=== PATIENT | female | born 1950 | race Caucasian/White ===

== ENCOUNTER 2024-04-28 06:58 | Inpatient (IN) ==
[2024-04-28] MEDS: IPRATROPIUM/ALBUTEROL 3 ML AMPUL.NEB NEB ONE ×2 (07:18→09:05)
[2024-04-28] MEDS: methylPREDNISolone SOD SUCC 125 MG/2 ML VIAL IV ONE (07:18)
[2024-04-28] MEDS: MAGNESIUM SULFATE 2 GM/50 ML BAG IV ONE (07:19)
[2024-04-28 07:33] LABS: Basophils # (Auto) 0.02 K/mcL (0.00-0.30); Basophils % (Auto) 0.1 % (0.0-2.0); Eosinophils % (Auto) 0.6 % (0.0-7.0); Hematocrit 41.8 % (34.1-44.9); Hemoglobin 13.4 g/dL (11.2-15.7); Lymphocytes # (Auto) 1.77 K/mcL (1.50-4.80); Lymphocytes % (Auto) 10.2 % (15.5-49.0); Mean Cell Volume 99.3 fL (80.0-100.0); Mean Corpuscular HGB Conc 32.1 g/dL (31.0-36.0); Mean Platelet Volume 10.7 fL (8.8-12.5); Monocytes # (Auto) 1.43 K/mcL (0.10-0.90); Monocytes % (Auto) 8.2 % (1.0-12.0); Neutrophils % (Auto) 80.3 % (38.0-78.0); Platelet Count 195 K/mcL (140-440); RBC 4.21 M/mcL (3.59-5.38); Red Cell Distribution Width 13.9 % (11.5-14.5); WBC 17.4 K/mcL (4.5-11.0)
[2024-04-28 07:51] LABS: Blood Urea Nitrogen 13 mg/dL (8-23); Calcium 9.1 mg/dL (8.6-10.4); Carbon Dioxide 22 mmol/L (22-30); Chloride 100 mmol/L (96-108); Glomerular Filtration Rate 86; Glucose 115 mg/dL (70-105); Potassium 3.6 mmol/L (3.3-5.1); Sodium 136 mmol/L (133-145)
[2024-04-28 10:34] LABS: ABG Methemoglobin 0.2 % (0.4-1.5); Total Hemoglobin 14.4 gm/Dl (12.0-15.0); VBG Base Excess -2 (-2-3); VBG HCO3 23.6 mmol/L (24.0-28.0); VBG Oxygen Saturation 68.1 % (40.0-70.0); VBG PCO2 43.4 mmHg (41.0-51.0); VBG PH 7.35 U (7.32-7.42); VBG PO2 36.7 mmHg (25.0-40.0); VBG Total CO2 24.9 mmol/L (25.0-29.0)
[2024-04-28] MEDS ORDERED: LACTULOSE 20 GM/30 ML ORAL.SOL PO PRN (11:37)
[2024-04-28] MEDS ORDERED: ALBUTEROL SULFATE 2.5 MG/3 ML NEBULIZER NEB PRN (11:37)
[2024-04-28] MEDS ORDERED: ONDANSETRON 4 MG/2 ML VIAL IV PRN (11:37)
[2024-04-28] MEDS ORDERED: ACETAMINOPHEN 325 MG TABLET PO PRN (11:37)
[2024-04-28] MEDS ORDERED: SENNOSIDES 1 TABLET PO PRN (11:37)
[2024-04-28] MEDS: cefTRIAXone 1 GM VIAL IV SCH (11:59)
[2024-04-28] MEDS: IPRATROPIUM/ALBUTEROL 3 ML AMPUL.NEB NEB SCH (12:01)
[2024-04-28] MEDS: TRELEGY ELLIPTA INH SCH (14:00)
[2024-04-28] MEDS: 0.9 % SODIUM CHLORIDE 10 ML SYRINGE IV SCH (14:01)
[2024-04-28] MEDS: guaiFENesin 600 MG TAB.SR.12H PO SCH (16:42)
[2024-04-28] MEDS: methylPREDNISolone SOD SUCC 125 MG/2 ML VIAL IV SCH (21:14)
[2024-04-28] MEDS: ASPIRIN 81 MG TAB.CHEW PO SCH (21:15)
[2024-04-28] MEDS: ATORVASTATIN 10 MG TABLET PO SCH (21:15)
[2024-04-28] MEDS: DULoxetine 30 MG CAPSULE PO SCH ×2 (21:15)
[2024-04-28] MEDS: LISINOPRIL 20 MG TABLET PO SCH (21:15)
[2024-04-28] MEDS: ATENOLOL 25 MG TABLET PO SCH (21:15)
[2024-04-28] MEDS: DOCUSATE SODIUM 100 MG CAPSULE PO SCH (21:16)
[2024-04-29 06:16] LABS: Basophils # (Auto) 0.01 K/mcL (0.00-0.30); Basophils % (Auto) 0.1 % (0.0-2.0); Eosinophils # (Auto) 0 K/mcL (0.00-0.70); Eosinophils % (Auto) 0 % (0.0-7.0); Hematocrit 38.8 % (34.1-44.9); Hemoglobin 12.7 g/dL (11.2-15.7); Lymphocytes # (Auto) 0.48 K/mcL (1.50-4.80); Lymphocytes % (Auto) 3.5 % (15.5-49.0); Mean Cell Volume 98.7 fL (80.0-100.0); Mean Corpuscular HGB Conc 32.7 g/dL (31.0-36.0); Mean Platelet Volume 10.7 fL (8.8-12.5); Monocytes % (Auto) 3.6 % (1.0-12.0); Neutrophils % (Auto) 92.5 % (38.0-78.0); Platelet Count 217 K/mcL (140-440); RBC 3.93 M/mcL (3.59-5.38); Red Cell Distribution Width 13.8 % (11.5-14.5); WBC 13.9 K/mcL (4.5-11.0)
[2024-04-29 06:26] LABS: ALT/SGPT 8 U/L (<40); AST/SGOT 14 U/L (<32); Albumin 3.9 gm/dL (3.2-5.2); Albumin/Globulin Ratio 1.4 (1.0-2.3); Alkaline Phosphatase 70 U/L (39-117); Bilirubin,Direct < 0.2 mg/dL (0-0.3); Bilirubin,Total < 0.2 mg/dL (0.1-1.0); Blood Urea Nitrogen 21 mg/dL (8-23); Carbon Dioxide 26 mmol/L (22-30); Chloride 101 mmol/L (96-108); Globulin 2.7 gm/dL (2.2-3.7); Glomerular Filtration Rate 90; Glucose 159 mg/dL (70-105); Lactate Dehydrogenase 155 U/L (135-225); Phosphorous 2.6 mg/dL (2.5-4.5); Potassium 4.3 mmol/L (3.3-5.1); Sodium 137 mmol/L (133-145); Triglycerides 52 mg/dL (<150); Uric Acid 6.6 mg/dL (2.5-8.0)
[2024-04-29] MEDS: ENOXAPARIN 40 MG/0.4 ML SYRINGE SQ SCH (08:39)
[2024-04-29] MEDS: OMEPRAZOLE 20 MG CAPSULE PO PRN (14:14)
[2024-04-29] MEDS: DULoxetine 30 MG CAPSULE PO SCH (20:25)
[2024-04-30 06:07] LABS: Basophils # (Auto) 0.02 K/mcL (0.00-0.30); Basophils % (Auto) 0.1 % (0.0-2.0); Eosinophils # (Auto) 0 K/mcL (0.00-0.70); Eosinophils % (Auto) 0 % (0.0-7.0); Hematocrit 37.3 % (34.1-44.9); Hemoglobin 12.1 g/dL (11.2-15.7); Lymphocytes % (Auto) 3.2 % (15.5-49.0); Mean Cell Volume 99.2 fL (80.0-100.0); Mean Corpuscular HGB Conc 32.4 g/dL (31.0-36.0); Mean Platelet Volume 10.8 fL (8.8-12.5); Monocytes # (Auto) 0.68 K/mcL (0.10-0.90); Monocytes % (Auto) 4.4 % (1.0-12.0); Neutrophils % (Auto) 91.8 % (38.0-78.0); Platelet Count 226 K/mcL (140-440); RBC 3.76 M/mcL (3.59-5.38); Red Cell Distribution Width 13.9 % (11.5-14.5); WBC 15.4 K/mcL (4.5-11.0)
== END 2024-04-30 14:37 | disposition home or self-care (01) | DRG 193 ==
LOC: ED 06:58 → ICU 11:33 → MEDSUR 04-29 11:35
PROVIDERS: ADMIT Internal Medicine; ATTEND Internal Medicine

== ENCOUNTER 2024-05-14 18:34 | Inpatient (IN) ==
[2024-05-14] MEDS ORDERED: IOPAMIDOL 100 ML BOTTLE IV ONE (18:35)
[2024-05-14] MEDS: methylPREDNISolone SOD SUCC 125 MG/2 ML VIAL IV ONE (18:49)
[2024-05-14] MEDS: 0.9 % SODIUM CHLORIDE 1,000 ML IV ONE (18:51)
[2024-05-14] MEDS: IPRATROPIUM/ALBUTEROL 3 ML AMPUL.NEB NEB ONE (18:58)
[2024-05-14 19:08] LABS: Basophils # (Auto) 0.04 K/mcL (0.00-0.30); Basophils % (Auto) 0.4 % (0.0-2.0); Eosinophils # (Auto) 0.02 K/mcL (0.00-0.70); Eosinophils % (Auto) 0.2 % (0.0-7.0); Hematocrit 41.2 % (34.1-44.9); Hemoglobin 13.4 g/dL (11.2-15.7); Lymphocytes # (Auto) 0.68 K/mcL (1.50-4.80); Lymphocytes % (Auto) 6.6 % (15.5-49.0); Mean Cell Volume 96.7 fL (80.0-100.0); Mean Corpuscular HGB Conc 32.5 g/dL (31.0-36.0); Mean Platelet Volume 10.5 fL (8.8-12.5); Monocytes # (Auto) 1.26 K/mcL (0.10-0.90); Monocytes % (Auto) 12.2 % (1.0-12.0); Neutrophils % (Auto) 80.3 % (38.0-78.0); Platelet Count 237 K/mcL (140-440); RBC 4.26 M/mcL (3.59-5.38); Red Cell Distribution Width 13.4 % (11.5-14.5); WBC 10.3 K/mcL (4.5-11.0)
[2024-05-14 19:28] LABS: Blood Urea Nitrogen 13 mg/dL (8-23); Calcium 9.4 mg/dL (8.6-10.4); Carbon Dioxide 23 mmol/L (22-30); Chloride 95 mmol/L (96-108); Glomerular Filtration Rate 73; Glucose 148 mg/dL (70-105); Potassium 4.1 mmol/L (3.3-5.1); Sodium 134 mmol/L (133-145)
[2024-05-14] MEDS: MAGNESIUM SULFATE 8.12 MEQ/2 ML VIAL ONE (20:11)
[2024-05-14] MEDS: MAGNESIUM SULFATE 1 GM/100 ML BAG IV ONE (20:13)
[2024-05-14] MEDS: cefTRIAXone 1 GM VIAL IV ONE (21:29)
[2024-05-15] MEDS ORDERED: LACTULOSE 20 GM/30 ML ORAL.SOL PO PRN (00:57)
[2024-05-15] MEDS: MAGNESIUM SULFATE 2 GM/50 ML BAG IV ONE ×2 (01:21→03:24)
[2024-05-15] MEDS: LEVOFLOXACIN 750 MG/150 ML BAG IV SCH ×2 (01:31→16:05)
[2024-05-15] MEDS: IPRATROPIUM/ALBUTEROL 3 ML AMPUL.NEB NEB SCH (02:55)
[2024-05-15] MEDS: VANCOMYCIN 1,500 MG in 0.9 % SODIUM CHLORIDE 500 ML IV ONE (03:22)
[2024-05-15] MEDS: VANCOMYCIN PER PHARMACY IV ONE (03:24)
[2024-05-15] MEDS: LEVOFLOXACIN 750 MG/150 ML BAG IV ONE (03:25)
[2024-05-15] MEDS: IPRATROPIUM/ALBUTEROL 3 ML AMPUL.NEB NEB ONE (04:50)
[2024-05-15] MEDS: 0.9 % SODIUM CHLORIDE 10 ML SYRINGE IV SCH ×2 (05:01→05:02)
[2024-05-15 06:58] LABS: Basophils # (Auto) 0.01 K/mcL (0.00-0.30); Basophils % (Auto) 0.2 % (0.0-2.0); Eosinophils # (Auto) 0 K/mcL (0.00-0.70); Eosinophils % (Auto) 0 % (0.0-7.0); Hematocrit 36.7 % (34.1-44.9); Hemoglobin 11.9 g/dL (11.2-15.7); Lymphocytes # (Auto) 0.23 K/mcL (1.50-4.80); Lymphocytes % (Auto) 3.7 % (15.5-49.0); Mean Cell Volume 99.2 fL (80.0-100.0); Mean Corpuscular HGB Conc 32.4 g/dL (31.0-36.0); Mean Platelet Volume 10.5 fL (8.8-12.5); Monocytes # (Auto) 0.15 K/mcL (0.10-0.90); Monocytes % (Auto) 2.4 % (1.0-12.0); Neutrophils % (Auto) 93.4 % (38.0-78.0); Platelet Count 208 K/mcL (140-440); Red Cell Distribution Width 13.4 % (11.5-14.5); WBC 6.2 K/mcL (4.5-11.0)
[2024-05-15 07:03] LABS: ALT/SGPT 9 U/L (<40); AST/SGOT 14 U/L (<32); Albumin 3.6 gm/dL (3.2-5.2); Albumin/Globulin Ratio 1.4 (1.0-2.3); Alkaline Phosphatase 72 U/L (39-117); Bilirubin,Direct < 0.2 mg/dL (0-0.3); Bilirubin,Total 0.2 mg/dL (0.1-1.0); Blood Urea Nitrogen 13 mg/dL (8-23); Calcium 8.2 mg/dL (8.6-10.4); Carbon Dioxide 22 mmol/L (22-30); Chloride 101 mmol/L (96-108); Globulin 2.6 gm/dL (2.2-3.7); Glomerular Filtration Rate 90; Glucose 145 mg/dL (70-105); Lactate Dehydrogenase 160 U/L (135-225); Phosphorous 2.2 mg/dL (2.5-4.5); Potassium 4.1 mmol/L (3.3-5.1); Sodium 136 mmol/L (133-145); Triglycerides 46 mg/dL (<150); Uric Acid 5.6 mg/dL (2.5-8.0)
[2024-05-15] MEDS ORDERED: VANCOMYCIN PER PHARMACY IV SCH (07:15)
[2024-05-15] MEDS: THIAMINE 200 MG in 0.9 % SODIUM CHLORIDE 50 ML IV ONE ×2 (08:26→09:03)
[2024-05-15] MEDS: methylPREDNISolone SOD SUCC 125 MG/2 ML VIAL IV SCH (09:02)
[2024-05-15] MEDS: ENOXAPARIN 40 MG/0.4 ML SYRINGE SQ SCH (09:02)
[2024-05-15] MEDS ORDERED: OMEPRAZOLE 20 MG CAPSULE PO PRN (13:52)
[2024-05-15] MEDS ORDERED: VANCOMYCIN 1,000 MG in 0.9 % SODIUM CHLORIDE 250 ML IV ONE (21:00)
[2024-05-15] MEDS ORDERED: NON FORMULARY MEDICATION 1 DOSE MISCELL (Duloxetine 60 mg capsule,delayed release(DR/EC)) PO SCH (21:00)
[2024-05-15] MEDS: ATORVASTATIN 10 MG TABLET PO SCH (21:08)
[2024-05-15] MEDS: DULoxetine 30 MG CAPSULE PO SCH (21:08)
[2024-05-15] MEDS: THIAMINE 100 MG in 0.9 % SODIUM CHLORIDE 50 ML IV ONE (21:08)
[2024-05-15] MEDS: LORazepam 2 MG/ML VIAL IV PRN (21:23)
[2024-05-15] MEDS ORDERED: VANCOMYCIN 500 MG in 0.9 % SODIUM CHLORIDE 100 ML IV ONE (22:00)
[2024-05-16 06:22] LABS: Basophils # (Auto) 0.02 K/mcL (0.00-0.30); Basophils % (Auto) 0.2 % (0.0-2.0); Eosinophils # (Auto) 0 K/mcL (0.00-0.70); Eosinophils % (Auto) 0 % (0.0-7.0); Hematocrit 37.8 % (34.1-44.9); Lymphocytes # (Auto) 0.32 K/mcL (1.50-4.80); Lymphocytes % (Auto) 2.9 % (15.5-49.0); Mean Cell Volume 100.3 fL (80.0-100.0); Mean Corpuscular HGB Conc 31.7 g/dL (31.0-36.0); Mean Platelet Volume 10.5 fL (8.8-12.5); Monocytes # (Auto) 0.61 K/mcL (0.10-0.90); Monocytes % (Auto) 5.5 % (1.0-12.0); Platelet Count 235 K/mcL (140-440); RBC 3.77 M/mcL (3.59-5.38); Red Cell Distribution Width 13.4 % (11.5-14.5); WBC 11.1 K/mcL (4.5-11.0)
[2024-05-16] MEDS: Fluticasone-Umeclidin-Vilanter [Trelegy Ellipta] INH SCH (07:04)
[2024-05-16 07:16] LABS: ALT/SGPT 9 U/L (<40); AST/SGOT 13 U/L (<32); Albumin 3.7 gm/dL (3.2-5.2); Albumin/Globulin Ratio 1.5 (1.0-2.3); Alkaline Phosphatase 69 U/L (39-117); Bilirubin,Direct < 0.2 mg/dL (0-0.3); Bilirubin,Total < 0.2 mg/dL (0.1-1.0); Blood Urea Nitrogen 16 mg/dL (8-23); Carbon Dioxide 24 mmol/L (22-30); Chloride 101 mmol/L (96-108); Globulin 2.4 gm/dL (2.2-3.7); Glomerular Filtration Rate 90; Glucose 138 mg/dL (70-105); Lactate Dehydrogenase 157 U/L (135-225); Phosphorous 2.9 mg/dL (2.5-4.5); Potassium 4.3 mmol/L (3.3-5.1); Sodium 139 mmol/L (133-145); Triglycerides 69 mg/dL (<150); Uric Acid 5.5 mg/dL (2.5-8.0)
[2024-05-16] MEDS: morphine 2 MG/ML VIAL IV ONE (07:54)
[2024-05-16] MEDS: IPRATROPIUM/ALBUTEROL 3 ML AMPUL.NEB NEB PRN (08:00)
[2024-05-16] MEDS: MAGNESIUM SULFATE 2 GM/50 ML BAG IV ONE (08:09)
[2024-05-16] MEDS: THIAMINE 100 MG in 0.9 % SODIUM CHLORIDE 50 ML IV SCH (10:04)
[2024-05-16] MEDS: morphine 2 MG/ML VIAL ONE (20:22)
[2024-05-16] MEDS: 0.9 % SODIUM CHLORIDE 250 ML IV SCH (20:27)
[2024-05-16] MEDS: MAGNESIUM SULFATE 2 GM/50 ML BAG IV SCH (20:30)
[2024-05-16] MEDS: FUROSEMIDE 40 MG/4 ML VIAL IV SCH (20:33)
[2024-05-16] MEDS: methylPREDNISolone SOD SUCC 125 MG/2 ML VIAL IV SCH ×2 (20:34→20:54)
[2024-05-16] MEDS: buPROPion 150 MG TAB.SR.12H PO SCH (20:55)
[2024-05-16] MEDS: SENNOSIDES 1 TABLET PO PRN (20:55)
[2024-05-16] MEDS: methylPREDNISolone SOD SUCC 40 MG/ML VIAL IV ONE (21:00)
[2024-05-16] MEDS: ATENOLOL 25 MG TABLET PO SCH (21:00)
[2024-05-16] MEDS ORDERED: IOPAMIDOL 100 ML BOTTLE IV ONE (21:12)
[2024-05-16] MEDS: METOCLOPRAMIDE 10 MG/2 ML VIAL IV SCH (21:40)
[2024-05-17] MEDS: morphine 4 MG/ML VIAL IV PRN (02:43)
[2024-05-17] MEDS: LIDOCAINE 2% URO-JET 10 ML JEL.PF.APP UR ONE (03:31)
[2024-05-17 06:25] LABS: Basophils # (Auto) 0.04 K/mcL (0.00-0.30); Basophils % (Auto) 0.3 % (0.0-2.0); Eosinophils # (Auto) 0 K/mcL (0.00-0.70); Eosinophils % (Auto) 0 % (0.0-7.0); Hematocrit 39.5 % (34.1-44.9); Hemoglobin 12.7 g/dL (11.2-15.7); Lymphocytes # (Auto) 0.18 K/mcL (1.50-4.80); Lymphocytes % (Auto) 1.6 % (15.5-49.0); Mean Cell Volume 100.5 fL (80.0-100.0); Mean Corpuscular HGB Conc 32.2 g/dL (31.0-36.0); Mean Platelet Volume 10.6 fL (8.8-12.5); Monocytes # (Auto) 0.66 K/mcL (0.10-0.90); Monocytes % (Auto) 5.7 % (1.0-12.0); Neutrophils % (Auto) 92.2 % (38.0-78.0); Platelet Count 277 K/mcL (140-440); RBC 3.93 M/mcL (3.59-5.38); Red Cell Distribution Width 13.7 % (11.5-14.5); WBC 11.6 K/mcL (4.5-11.0)
[2024-05-17 06:37] LABS: ALT/SGPT 10 U/L (<40); AST/SGOT 15 U/L (<32); Albumin 4.1 gm/dL (3.2-5.2); Albumin/Globulin Ratio 1.4 (1.0-2.3); Alkaline Phosphatase 74 U/L (39-117); Bilirubin,Direct < 0.2 mg/dL (0-0.3); Bilirubin,Total < 0.2 mg/dL (0.1-1.0); Blood Urea Nitrogen 26 mg/dL (8-23); Calcium 9.3 mg/dL (8.6-10.4); Carbon Dioxide 28 mmol/L (22-30); Chloride 97 mmol/L (96-108); Globulin 2.9 gm/dL (2.2-3.7); Glomerular Filtration Rate 73; Glucose 148 mg/dL (70-105); Lactate Dehydrogenase 198 U/L (135-225); Phosphorous 3.8 mg/dL (2.5-4.5); Potassium 4.7 mmol/L (3.3-5.1); Sodium 139 mmol/L (133-145); Triglycerides 84 mg/dL (<150)
[2024-05-17] MEDS: LORazepam 2 MG/ML VIAL IV ONE (07:36)
[2024-05-17] MEDS: morphine 2 MG/ML VIAL IV ONE (07:36)
[2024-05-17] MEDS: NALOXONE HCL 0.4 MG/ML VIAL IV ONE (08:01)
[2024-05-17] MEDS: NALOXONE HCL 0.4 MG/ML VIAL ONE (08:25)
[2024-05-17] MEDS: PANTOPRAZOLE 40 MG VIAL IV SCH (10:07)
[2024-05-17] MEDS: ALBUTEROL SULFATE 2.5 MG/3 ML NEBULIZER ONE (10:26)
[2024-05-17] MEDS: FUROSEMIDE 40 MG/4 ML VIAL IV ONE (11:09)
[2024-05-17] MEDS: LACTATED RINGERS 1,000 ML IV SCH ×4 (11:10→22:31)
[2024-05-17] MEDS ORDERED: PROPOFOL 200 MG/20 ML VIAL IV PRN (13:15)
[2024-05-17] MEDS ORDERED: NOREPINEPHRINE BITARTRATE 16 MG in 0.9 % SODIUM CHLORIDE 234 ML IV PRN (13:15)
[2024-05-17] MEDS ORDERED: NOREPINEPHRINE 250 ML IV SCH (13:30)
[2024-05-17] MEDS: MIDAZOLAM 5 MG/5 ML VIAL IV ONE ×2 (14:35→20:02)
[2024-05-17] MEDS: KETAMINE 50 MG/ML ML IV ONE (14:36)
[2024-05-17] MEDS: ROCURONIUM 10 MG/ML ML IV ONE (14:36)
[2024-05-17] MEDS: fentaNYL 100 MCG/2 ML VIAL IV ONE (14:36)
[2024-05-17] MEDS: PROPOFOL 1,000 MG in PREMIX 1 BAG IV SCH (14:41)
[2024-05-17] MEDS: 0.9 % SODIUM CHLORIDE 250 ML IV SCH (14:41)
[2024-05-17] MEDS: fentaNYL 2,500 MCG in 0.9 % SODIUM CHLORIDE 200 ML IV SCH (14:41)
[2024-05-17] MEDS: NOREPINEPHRINE 250 ML IV PRN (14:45)
[2024-05-17] MEDS: 0.9 % SODIUM CHLORIDE 1,000 ML IV ONE (14:45)
[2024-05-17] MEDS: MIDAZOLAM 2 MG/2 ML VIAL IV SCH (15:04)
[2024-05-17] MEDS: KETAMINE 100 MG/ML ML ONE (16:45)
[2024-05-17] MEDS: PROPOFOL 100 ML IV ONE (16:45)
[2024-05-17] MEDS: MIDAZOLAM 2 MG/2 ML VIAL ONE (20:26)
[2024-05-17] MEDS: CHLORHEXIDINE GLUCONATE 15 ML UDC SWABMOUTH SCH (21:25)
[2024-05-17] MEDS: LINEZOLID 600 MG/300 ML BAG IV SCH (21:25)
[2024-05-18] MEDS: PROPOFOL 100 ML IV ONE ×6 (00:37→21:35)
[2024-05-18 06:49] LABS: Basophils # (Auto) 0.01 K/mcL (0.00-0.30); Basophils % (Auto) 0.2 % (0.0-2.0); Eosinophils # (Auto) 0 K/mcL (0.00-0.70); Eosinophils % (Auto) 0 % (0.0-7.0); Hematocrit 32.4 % (34.1-44.9); Hemoglobin 10.2 g/dL (11.2-15.7); Lymphocytes # (Auto) 0.17 K/mcL (1.50-4.80); Lymphocytes % (Auto) 2.7 % (15.5-49.0); Mean Cell Volume 101.6 fL (80.0-100.0); Mean Corpuscular HGB Conc 31.5 g/dL (31.0-36.0); Mean Platelet Volume 10.5 fL (8.8-12.5); Monocytes # (Auto) 0.29 K/mcL (0.10-0.90); Monocytes % (Auto) 4.7 % (1.0-12.0); Neutrophils % (Auto) 92.1 % (38.0-78.0); Platelet Count 191 K/mcL (140-440); RBC 3.19 M/mcL (3.59-5.38); Red Cell Distribution Width 13.4 % (11.5-14.5); WBC 6.2 K/mcL (4.5-11.0)
[2024-05-18] MEDS: MIDAZOLAM 2 MG/2 ML VIAL IV PRN (07:03)
[2024-05-18 07:31] LABS: ALT/SGPT 8 U/L (<40); AST/SGOT 14 U/L (<32); Albumin 3.2 gm/dL (3.2-5.2); Albumin/Globulin Ratio 1.5 (1.0-2.3); Alkaline Phosphatase 50 U/L (39-117); Bilirubin,Direct < 0.2 mg/dL (0-0.3); Bilirubin,Total < 0.2 mg/dL (0.1-1.0); Blood Urea Nitrogen 29 mg/dL (8-23); Calcium 8.3 mg/dL (8.6-10.4); Carbon Dioxide 28 mmol/L (22-30); Chloride 98 mmol/L (96-108); Globulin 2.2 gm/dL (2.2-3.7); Glomerular Filtration Rate 73; Glucose 177 mg/dL (70-105); Lactate Dehydrogenase 159 U/L (135-225); Phosphorous 1.3 mg/dL (2.5-4.5); Potassium 4.2 mmol/L (3.3-5.1); Sodium 138 mmol/L (133-145); Triglycerides 110 mg/dL (<150); Uric Acid 4.8 mg/dL (2.5-8.0)
[2024-05-18] MEDS: SODIUM PHOSPHATE 30 MMOL in DEXTROSE 5% IN WATER 500 ML IV ONE (08:48)
[2024-05-18] MEDS: FUROSEMIDE 40 MG/4 ML VIAL IV ONE ×2 (08:48→17:30)
[2024-05-18] MEDS: LACTATED RINGERS 1,000 ML IV SCH ×2 (08:48→13:41)
[2024-05-18] MEDS ORDERED: DEXTROSE 50% 50 ML VIAL IV PRN (09:58)
[2024-05-18] MEDS ORDERED: DEXTROSE 31 GM ORAL.SUSP PO PRN (09:58)
[2024-05-18] MEDS: 0.9 % SODIUM CHLORIDE 1,000 ML IV ONE (10:10)
[2024-05-18] MEDS: ADENOSINE 3 MG/ML VIAL IV ONE ×2 (10:22→10:27)
[2024-05-18] MEDS: AMIODARONE 150 MG in DEXTROSE 5% IN WATER 50 ML IV PRN (10:27)
[2024-05-18] MEDS: METOPROLOL TARTRATE 5 MG/5 ML VIAL IV ONE ×3 (10:29→11:47)
[2024-05-18] MEDS: AMIODARONE 360 MG in PREMIX 1 BAG IV SCH ×3 (10:36→16:41)
[2024-05-18] MEDS ORDERED: PHENYLEPHRINE 10 MG in 0.9 % SODIUM CHLORIDE 499 ML IV SCH (11:00)
[2024-05-18 11:24] LABS: Basophils # (Auto) 0 K/mcL (0.00-0.30); Basophils % (Auto) 0 % (0.0-2.0); Eosinophils # (Auto) 0 K/mcL (0.00-0.70); Eosinophils % (Auto) 0 % (0.0-7.0); Hematocrit 34.5 % (34.1-44.9); Hemoglobin 10.7 g/dL (11.2-15.7); Lymphocytes # (Auto) 0.38 K/mcL (1.50-4.80); Lymphocytes % (Auto) 5.6 % (15.5-49.0); Mean Cell Volume 102.4 fL (80.0-100.0); Mean Platelet Volume 10.3 fL (8.8-12.5); Monocytes # (Auto) 0.33 K/mcL (0.10-0.90); Monocytes % (Auto) 4.8 % (1.0-12.0); Neutrophils % (Auto) 88.6 % (38.0-78.0); Platelet Count 187 K/mcL (140-440); RBC 3.37 M/mcL (3.59-5.38); Red Cell Distribution Width 13.4 % (11.5-14.5); WBC 6.8 K/mcL (4.5-11.0)
[2024-05-18] MEDS ORDERED: INSULIN LISPRO 1 UNIT/0.01 ML UNIT SQ SCH (11:30)
[2024-05-18 11:45] LABS: ALT/SGPT 7 U/L (<40); AST/SGOT 17 U/L (<32); Albumin 3.2 gm/dL (3.2-5.2); Albumin/Globulin Ratio 1.3 (1.0-2.3); Alkaline Phosphatase 51 U/L (39-117); Bilirubin,Direct < 0.2 mg/dL (0-0.3); Bilirubin,Total < 0.2 mg/dL (0.1-1.0); Blood Urea Nitrogen 25 mg/dL (8-23); Calcium 8.1 mg/dL (8.6-10.4); Carbon Dioxide 28 mmol/L (22-30); Chloride 96 mmol/L (96-108); Globulin 2.4 gm/dL (2.2-3.7); Glomerular Filtration Rate 73; Glucose 218 mg/dL (70-105); Lactate Dehydrogenase 183 U/L (135-225); Phosphorous 2.7 mg/dL (2.5-4.5); Potassium 3.8 mmol/L (3.3-5.1); Sodium 137 mmol/L (133-145); Triglycerides 85 mg/dL (<150); Uric Acid 3.9 mg/dL (2.5-8.0)
[2024-05-18] MEDS: AMIODARONE 360 MG/200 ML BAG IV ONE ×2 (11:48→17:29)
[2024-05-18] MEDS: MIDAZOLAM 2 MG/2 ML VIAL ONE (11:48)
[2024-05-18] MEDS ORDERED: AMIODARONE 360 MG/200 ML BAG IV ONE (11:54)
[2024-05-18] MEDS: PHENYLEPHRINE 20 MG in 0.9 % SODIUM CHLORIDE 248 ML IV SCH (12:35)
[2024-05-18] MEDS ORDERED: LIDOCAINE 2% 20 ML VIAL SQ ONE (13:01)
[2024-05-18] MEDS ORDERED: SODIUM CHLORIDE IRRIG SOLUTION 500 ML BOTTLE IRR ONE (13:01)
[2024-05-18] MEDS: 0.9 % SODIUM CHLORIDE 250 ML IV SCH ×2 (13:47→14:25)
[2024-05-18] MEDS: INSULIN LISPRO 1 UNIT/0.01 ML UNIT SQ SCH (14:24)
[2024-05-18 15:24] LABS: Phosphorous 3.8 mg/dL (2.5-4.5)
[2024-05-18 16:42] LABS: ALT/SGPT 8 U/L (<40); AST/SGOT 16 U/L (<32); Albumin 3.2 gm/dL (3.2-5.2); Albumin/Globulin Ratio 1.5 (1.0-2.3); Alkaline Phosphatase 49 U/L (39-117); Bilirubin,Direct < 0.2 mg/dL (0-0.3); Bilirubin,Total < 0.2 mg/dL (0.1-1.0); Blood Urea Nitrogen 20 mg/dL (8-23); Calcium 7.6 mg/dL (8.6-10.4); Carbon Dioxide 30 mmol/L (22-30); Chloride 96 mmol/L (96-108); Globulin 2.2 gm/dL (2.2-3.7); Glomerular Filtration Rate 86; Glucose 124 mg/dL (70-105); Lactate Dehydrogenase 183 U/L (135-225); Phosphorous 3.4 mg/dL (2.5-4.5); Potassium 3.2 mmol/L (3.3-5.1); Sodium 138 mmol/L (133-145); Triglycerides 86 mg/dL (<150); Uric Acid 3.2 mg/dL (2.5-8.0)
[2024-05-18] MEDS: POTASSIUM CHLORIDE 20 MEQ PACKET PO ONE ×2 (17:30→21:35)
[2024-05-18] MEDS: POTASSIUM CHLORIDE IV ONE (17:30)
[2024-05-18] MEDS: MAGNESIUM SULFATE 2 GM/50 ML BAG IV ONE (17:30)
[2024-05-18] MEDS: SODIUM CHLORIDE 0.9% IV ONE (17:30)
[2024-05-18] MEDS: POTASSIUM CHLORIDE 20 MEQ in DEXTROSE 5% IN WATER 100 ML IV ONE (20:13)
[2024-05-18 20:30] LABS: Potassium 3.2 mmol/L (3.3-5.1)
[2024-05-18] MEDS: BUDESONIDE 0.5 MG/2 ML AMPUL.NEB NEB SCH (22:15)
[2024-05-18] MEDS: ALBUTEROL SULFATE 2.5 MG/3 ML NEBULIZER NEB PRN (22:16)
[2024-05-19] MEDS: PROPOFOL 100 ML IV ONE ×6 (02:18→22:13)
[2024-05-19] MEDS: AMIODARONE 360 MG/200 ML BAG IV ONE (04:26)
[2024-05-19 06:32] LABS: Basophils # (Auto) 0.01 K/mcL (0.00-0.30); Basophils % (Auto) 0.2 % (0.0-2.0); Eosinophils # (Auto) 0 K/mcL (0.00-0.70); Eosinophils % (Auto) 0 % (0.0-7.0); Hematocrit 32.4 % (34.1-44.9); Hemoglobin 10.3 g/dL (11.2-15.7); Lymphocytes # (Auto) 0.28 K/mcL (1.50-4.80); Lymphocytes % (Auto) 4.7 % (15.5-49.0); Mean Corpuscular HGB Conc 31.8 g/dL (31.0-36.0); Mean Platelet Volume 10.7 fL (8.8-12.5); Monocytes # (Auto) 0.27 K/mcL (0.10-0.90); Monocytes % (Auto) 4.5 % (1.0-12.0); Neutrophils % (Auto) 89.3 % (38.0-78.0); Platelet Count 179 K/mcL (140-440); RBC 3.24 M/mcL (3.59-5.38); Red Cell Distribution Width 13.6 % (11.5-14.5)
[2024-05-19 07:16] LABS: ALT/SGPT 8 U/L (<40); AST/SGOT 15 U/L (<32); Albumin 3.1 gm/dL (3.2-5.2); Albumin/Globulin Ratio 1.4 (1.0-2.3); Alkaline Phosphatase 46 U/L (39-117); Bilirubin,Direct < 0.2 mg/dL (0-0.3); Bilirubin,Total < 0.2 mg/dL (0.1-1.0); Blood Urea Nitrogen 18 mg/dL (8-23); Calcium 7.5 mg/dL (8.6-10.4); Carbon Dioxide 32 mmol/L (22-30); Chloride 97 mmol/L (96-108); Globulin 2.2 gm/dL (2.2-3.7); Glomerular Filtration Rate 90; Glucose 137 mg/dL (70-105); Lactate Dehydrogenase 191 U/L (135-225); Phosphorous 2.2 mg/dL (2.5-4.5); Potassium 3.6 mmol/L (3.3-5.1); Sodium 140 mmol/L (133-145); Triglycerides 95 mg/dL (<150); Uric Acid 2.4 mg/dL (2.5-8.0)
[2024-05-19] MEDS: FUROSEMIDE 40 MG/4 ML VIAL IV ONE (08:39)
[2024-05-19] MEDS: POTASSIUM PHOSPHATE 40 MEQ in DEXTROSE 5% IN WATER 500 ML IV ONE (08:39)
[2024-05-19] MEDS: CALCIUM GLUCONATE 9.3 MEQ in DEXTROSE 5% IN WATER 50 ML IV ONE (08:39)
[2024-05-19] MEDS: POLYETHYLENE GLYCOL 3350 17 GM PACKET PO PRN (08:40)
[2024-05-19] MEDS: POTASSIUM CHLORIDE 20 MEQ PACKET PO ONE (08:40)
[2024-05-19] MEDS: LEVOFLOXACIN 750 MG/150 ML BAG IV SCH (11:14)
[2024-05-19] MEDS: NYSTATIN 500,000 UNITS/5 ML ORAL.SUSP PO SCH (11:22)
[2024-05-19] MEDS ORDERED: ALTEPLASE 2 MG VIAL IV PRN (12:04)
[2024-05-19 13:17] LABS: ALT/SGPT 7 U/L (<40); AST/SGOT 15 U/L (<32); Albumin 3.1 gm/dL (3.2-5.2); Albumin/Globulin Ratio 1.3 (1.0-2.3); Alkaline Phosphatase 47 U/L (39-117); Bilirubin,Direct < 0.2 mg/dL (0-0.3); Bilirubin,Total < 0.2 mg/dL (0.1-1.0); Blood Urea Nitrogen 17 mg/dL (8-23); Calcium 7.8 mg/dL (8.6-10.4); Carbon Dioxide 32 mmol/L (22-30); Chloride 92 mmol/L (96-108); Globulin 2.3 gm/dL (2.2-3.7); Glomerular Filtration Rate 86; Glucose 249 mg/dL (70-105); Lactate Dehydrogenase 204 U/L (135-225); Phosphorous 4.2 mg/dL (2.5-4.5); Potassium 3.9 mmol/L (3.3-5.1); Sodium 136 mmol/L (133-145); Triglycerides 106 mg/dL (<150); Uric Acid 2.3 mg/dL (2.5-8.0)
[2024-05-19] MEDS: CHLORHEXIDINE GLUCONATE 15 ML UDC SWABMOUTH SCH (14:22)
[2024-05-19] MEDS: 0.9 % SODIUM CHLORIDE 10 ML SYRINGE IV SCH (20:10)
[2024-05-20] MEDS: PROPOFOL 100 ML IV ONE ×2 (03:01→07:00)
[2024-05-20 06:21] LABS: Basophils # (Auto) 0.01 K/mcL (0.00-0.30); Basophils % (Auto) 0.1 % (0.0-2.0); Eosinophils # (Auto) 0 K/mcL (0.00-0.70); Eosinophils % (Auto) 0 % (0.0-7.0); Hematocrit 32.6 % (34.1-44.9); Hemoglobin 10.7 g/dL (11.2-15.7); Lymphocytes # (Auto) 0.42 K/mcL (1.50-4.80); Lymphocytes % (Auto) 6.1 % (15.5-49.0); Mean Cell Volume 99.4 fL (80.0-100.0); Mean Corpuscular HGB Conc 32.8 g/dL (31.0-36.0); Mean Platelet Volume 10.7 fL (8.8-12.5); Monocytes # (Auto) 0.35 K/mcL (0.10-0.90); Monocytes % (Auto) 5.1 % (1.0-12.0); Neutrophils % (Auto) 84.5 % (38.0-78.0); Platelet Count 191 K/mcL (140-440); RBC 3.28 M/mcL (3.59-5.38); Red Cell Distribution Width 13.8 % (11.5-14.5); WBC 6.9 K/mcL (4.5-11.0)
[2024-05-20 07:16] LABS: ALT/SGPT 7 U/L (<40); AST/SGOT 15 U/L (<32); Albumin 2.9 gm/dL (3.2-5.2); Albumin/Globulin Ratio 1.3 (1.0-2.3); Alkaline Phosphatase 42 U/L (39-117); Bilirubin,Direct < 0.2 mg/dL (0-0.3); Bilirubin,Total < 0.2 mg/dL (0.1-1.0); Blood Urea Nitrogen 19 mg/dL (8-23); Calcium 7.7 mg/dL (8.6-10.4); Carbon Dioxide 33 mmol/L (22-30); Chloride 93 mmol/L (96-108); Globulin 2.3 gm/dL (2.2-3.7); Glomerular Filtration Rate 90; Glucose 128 mg/dL (70-105); Lactate Dehydrogenase 231 U/L (135-225); Phosphorous 2.7 mg/dL (2.5-4.5); Potassium 4.2 mmol/L (3.3-5.1); Sodium 136 mmol/L (133-145); Triglycerides 968 mg/dL (<150); Uric Acid 1.8 mg/dL (2.5-8.0)
[2024-05-20] MEDS: DEXMEDETOMIDINE 100 ML IV ONE ×2 (10:19→15:18)
[2024-05-20] MEDS: DEXMEDETOMIDINE 400 MCG in PREMIX 1 BAG IV SCH (11:07)
[2024-05-20] MEDS: METOPROLOL TARTRATE 5 MG/5 ML VIAL IV ONE (11:10)
[2024-05-20] MEDS: METOPROLOL TARTRATE 5 MG/5 ML VIAL IV PRN (11:10)
[2024-05-20] MEDS ORDERED: IOPAMIDOL 100 ML BOTTLE IV ONE (13:02)
[2024-05-20] MEDS: ALBUMIN HUMAN 12.5 GM/50 ML VIAL IV ONE (13:02)
[2024-05-20] MEDS: FUROSEMIDE 40 MG/4 ML VIAL IV ONE (13:30)
[2024-05-20] MEDS: methylPREDNISolone SOD SUCC 40 MG/ML VIAL IV SCH (13:31)
[2024-05-20] MEDS: DIAZEPAM 10 MG/2 ML SYRINGE IV ONE (15:41)
[2024-05-20] MEDS: guaiFENesin/CODEINE 10 ML UDC PO PRN (22:01)
[2024-05-20] MEDS: IPRATROPIUM/ALBUTEROL 3 ML AMPUL.NEB NEB SCH (22:07)
[2024-05-21] MEDS: DEXMEDETOMIDINE 100 ML IV ONE ×2 (02:00→07:17)
[2024-05-21 06:33] LABS: ALT/SGPT 7 U/L (<40); AST/SGOT 15 U/L (<32); Albumin 3.3 gm/dL (3.2-5.2); Albumin/Globulin Ratio 1.4 (1.0-2.3); Alkaline Phosphatase 44 U/L (39-117); Bilirubin,Direct < 0.2 mg/dL (0-0.3); Bilirubin,Total < 0.2 mg/dL (0.1-1.0); Blood Urea Nitrogen 24 mg/dL (8-23); Calcium 8.1 mg/dL (8.6-10.4); Carbon Dioxide 37 mmol/L (22-30); Chloride 93 mmol/L (96-108); Globulin 2.4 gm/dL (2.2-3.7); Glomerular Filtration Rate 90; Glucose 212 mg/dL (70-105); Lactate Dehydrogenase 250 U/L (135-225); Phosphorous 2.2 mg/dL (2.5-4.5); Potassium 3.7 mmol/L (3.3-5.1); Sodium 138 mmol/L (133-145); Triglycerides 103 mg/dL (<150); Uric Acid 2.6 mg/dL (2.5-8.0)
[2024-05-21] MEDS: acetaZOLAMIDE SOD 500 MG VIAL IV ONE (08:33)
[2024-05-21] MEDS: methylPREDNISolone SOD SUCC 40 MG/ML VIAL IV SCH (08:34)
[2024-05-21] MEDS: NEUTRA PHOS 1 PACKET PO SCH (08:34)
[2024-05-21] MEDS: DIAZEPAM 10 MG/2 ML SYRINGE IV PRN (11:02)
[2024-05-22] MEDS: ONDANSETRON 4 MG/2 ML VIAL IV PRN (00:08)
[2024-05-22 06:06] LABS: Basophils # (Auto) 0.01 K/mcL (0.00-0.30); Basophils % (Auto) 0.1 % (0.0-2.0); Eosinophils # (Auto) 0 K/mcL (0.00-0.70); Eosinophils % (Auto) 0 % (0.0-7.0); Hemoglobin 12.1 g/dL (11.2-15.7); Lymphocytes # (Auto) 0.59 K/mcL (1.50-4.80); Lymphocytes % (Auto) 6.5 % (15.5-49.0); Mean Cell Volume 102.1 fL (80.0-100.0); Mean Platelet Volume 10.5 fL (8.8-12.5); Monocytes # (Auto) 0.91 K/mcL (0.10-0.90); Neutrophils % (Auto) 76.8 % (38.0-78.0); Platelet Count 214 K/mcL (140-440); RBC 3.82 M/mcL (3.59-5.38); Red Cell Distribution Width 13.4 % (11.5-14.5); WBC 9.1 K/mcL (4.5-11.0)
[2024-05-22 06:26] LABS: ALT/SGPT 12 U/L (<40); AST/SGOT 21 U/L (<32); Albumin 3.7 gm/dL (3.2-5.2); Albumin/Globulin Ratio 1.5 (1.0-2.3); Alkaline Phosphatase 51 U/L (39-117); Bilirubin,Direct < 0.2 mg/dL (0-0.3); Bilirubin,Total 0.2 mg/dL (0.1-1.0); Blood Urea Nitrogen 26 mg/dL (8-23); Calcium 8.9 mg/dL (8.6-10.4); Carbon Dioxide 32 mmol/L (22-30); Chloride 99 mmol/L (96-108); Globulin 2.5 gm/dL (2.2-3.7); Glomerular Filtration Rate 90; Glucose 88 mg/dL (70-105); Lactate Dehydrogenase 309 U/L (135-225); Phosphorous 3.5 mg/dL (2.5-4.5); Potassium 4.3 mmol/L (3.3-5.1); Sodium 142 mmol/L (133-145); Triglycerides 153 mg/dL (<150); Uric Acid 3.4 mg/dL (2.5-8.0)
[2024-05-22] MEDS ORDERED: ENALAPRILAT 1.25 MG/ML VIAL IV PRN (07:33)
[2024-05-22] MEDS: LISINOPRIL 20 MG TABLET PO SCH (10:17)
[2024-05-22] MEDS: ATENOLOL 25 MG TABLET PO SCH (10:17)
[2024-05-22] MEDS ORDERED: diphenhydrAMINE 25 MG CAPSULE PO PRN (10:29)
[2024-05-22] MEDS: MELATONIN 3 MG TABLET PO SCH (20:53)
[2024-05-23 06:28] LABS: ALT/SGPT 13 U/L (<40); AST/SGOT 15 U/L (<32); Albumin 3.4 gm/dL (3.2-5.2); Albumin/Globulin Ratio 1.3 (1.0-2.3); Alkaline Phosphatase 54 U/L (39-117); Bilirubin,Direct < 0.2 mg/dL (0-0.3); Bilirubin,Total 0.2 mg/dL (0.1-1.0); Blood Urea Nitrogen 37 mg/dL (8-23); Calcium 9.3 mg/dL (8.6-10.4); Carbon Dioxide 35 mmol/L (22-30); Chloride 102 mmol/L (96-108); Globulin 2.7 gm/dL (2.2-3.7); Glomerular Filtration Rate 96; Glucose 154 mg/dL (70-105); Lactate Dehydrogenase 271 U/L (135-225); Phosphorous 3.2 mg/dL (2.5-4.5); Potassium 4.8 mmol/L (3.3-5.1); Sodium 144 mmol/L (133-145); Triglycerides 188 mg/dL (<150)
[2024-05-23] MEDS: ACETYLCYSTEINE 800 MG/4 ML VIAL NEB SCH ×2 (10:05→10:14)
[2024-05-23] MEDS: guaiFENesin 600 MG TAB.SR.12H PO SCH ×2 (10:05→10:14)
[2024-05-23] MEDS ORDERED: ACETYLCYSTEINE 800 MG/4 ML VIAL NEB SCH (21:00)
[2024-05-23] MEDS ORDERED: guaiFENesin 600 MG TAB.SR.12H PO SCH (21:00)
[2024-05-24] MEDS ORDERED: predniSONE 20 MG TABLET PO SCH (08:00)
[2024-05-24] MEDS: predniSONE 20 MG TABLET PO SCH (10:15)
[2024-05-24] MEDS: PANTOPRAZOLE 40 MG TABLET PO SCH (10:15)
[2024-05-24 14:16] LABS: Basophils # (Auto) 0.02 K/mcL (0.00-0.30); Basophils % (Auto) 0.1 % (0.0-2.0); Eosinophils # (Auto) 0.07 K/mcL (0.00-0.70); Eosinophils % (Auto) 0.5 % (0.0-7.0); Hematocrit 43.5 % (34.1-44.9); Hemoglobin 13.1 g/dL (11.2-15.7); Lymphocytes # (Auto) 1.16 K/mcL (1.50-4.80); Lymphocytes % (Auto) 7.7 % (15.5-49.0); Mean Cell Volume 102.8 fL (80.0-100.0); Mean Corpuscular HGB Conc 30.1 g/dL (31.0-36.0); Monocytes # (Auto) 1.93 K/mcL (0.10-0.90); Monocytes % (Auto) 12.8 % (1.0-12.0); Neutrophils % (Auto) 76.5 % (38.0-78.0); Platelet Count 185 K/mcL (140-440); RBC 4.23 M/mcL (3.59-5.38); Red Cell Distribution Width 13.4 % (11.5-14.5); WBC 15.1 K/mcL (4.5-11.0)
[2024-05-24 14:47] LABS: ALT/SGPT 12 U/L (<40); AST/SGOT 14 U/L (<32); Albumin 3.5 gm/dL (3.2-5.2); Albumin/Globulin Ratio 1.3 (1.0-2.3); Alkaline Phosphatase 59 U/L (39-117); Bilirubin,Direct < 0.2 mg/dL (0-0.3); Bilirubin,Total 0.3 mg/dL (0.1-1.0); Blood Urea Nitrogen 34 mg/dL (8-23); Calcium 9.1 mg/dL (8.6-10.4); Carbon Dioxide 39 mmol/L (22-30); Chloride 100 mmol/L (96-108); Globulin 2.6 gm/dL (2.2-3.7); Glomerular Filtration Rate 103; Glucose 144 mg/dL (70-105); Lactate Dehydrogenase 271 U/L (135-225); Phosphorous 2.4 mg/dL (2.5-4.5); Potassium 4.2 mmol/L (3.3-5.1); Sodium 145 mmol/L (133-145); Triglycerides 181 mg/dL (<150); Uric Acid 3.7 mg/dL (2.5-8.0)
[2024-05-24 17:27] LABS: ABG Methemoglobin 0.4 % (0.4-1.5); Total Hemoglobin 13.9 gm/Dl (12.0-15.0); VBG Base Excess 12 (-2-3); VBG HCO3 40.8 mmol/L (24.0-28.0); VBG Oxygen Saturation 90.3 % (40.0-70.0); VBG PCO2 73.7 mmHg (41.0-51.0); VBG PH 7.36 U (7.32-7.42); VBG PO2 67.9 mmHg (25.0-40.0); VBG Total CO2 43.1 mmol/L (25.0-29.0)
[2024-05-24] MEDS: 0.9 % SODIUM CHLORIDE 10 ML SYRINGE IV PRN (18:55)
[2024-05-24] MEDS: ACETAMINOPHEN 325 MG TABLET PO PRN (20:52)
[2024-05-25] MEDS ORDERED: IPRATROPIUM/ALBUTEROL 3 ML AMPUL.NEB NEB SCH (06:30)
[2024-05-25 06:56] LABS: Basophils # (Auto) 0.02 K/mcL (0.00-0.30); Basophils % (Auto) 0.2 % (0.0-2.0); Eosinophils # (Auto) 0.03 K/mcL (0.00-0.70); Eosinophils % (Auto) 0.3 % (0.0-7.0); Hematocrit 39.1 % (34.1-44.9); Lymphocytes % (Auto) 15.5 % (15.5-49.0); Mean Cell Volume 102.1 fL (80.0-100.0); Mean Corpuscular HGB Conc 30.7 g/dL (31.0-36.0); Mean Platelet Volume 10.2 fL (8.8-12.5); Monocytes # (Auto) 1.42 K/mcL (0.10-0.90); Monocytes % (Auto) 13.7 % (1.0-12.0); Neutrophils % (Auto) 68.1 % (38.0-78.0); Platelet Count 161 K/mcL (140-440); RBC 3.83 M/mcL (3.59-5.38); Red Cell Distribution Width 13.2 % (11.5-14.5); WBC 10.3 K/mcL (4.5-11.0)
[2024-05-25] MEDS: morphine 2 MG/ML VIAL IV PRN (07:41)
[2024-05-25] MEDS: IPRATROPIUM/ALBUTEROL 3 ML AMPUL.NEB NEB SCH (10:13)
[2024-05-25] MEDS: hydrOXYzine 25 MG TABLET PO ONE (13:13)
[2024-05-25] MEDS: 0.9 % SODIUM CHLORIDE 500 ML IV ONE (16:30)
[2024-05-26] MEDS: morphine 2 MG/ML VIAL IV PRN (02:21)
[2024-05-26] MEDS: morphine 20 MG/ML ML PO PRN (08:47)
[2024-05-26] MEDS: predniSONE 20 MG TABLET PO SCH (08:47)
[2024-05-26] MEDS: LACTATED RINGERS 500 ML IV ONE (17:31)
[2024-05-26 19:15] LABS: ABG Methemoglobin 0.3 % (0.4-1.5); Total Hemoglobin 13.8 gm/Dl (12.0-15.0); VBG Base Excess 12 (-2-3); VBG HCO3 40.6 mmol/L (24.0-28.0); VBG PCO2 74.6 mmHg (41.0-51.0); VBG PH 7.35 U (7.32-7.42); VBG PO2 30.4 mmHg (25.0-40.0); VBG Total CO2 42.9 mmol/L (25.0-29.0)
[2024-05-27] MEDS: IPRATROPIUM/ALBUTEROL 3 ML AMPUL.NEB NEB SCH (13:49)
[2024-05-30] MEDS ORDERED: predniSONE 20 MG TABLET PO SCH (08:00)
== END 2024-05-29 10:43 | DRG 208 ==
LOC: ED 18:34 → ICU 05-15 00:16
PROVIDERS: ADMIT Student in an Organized Health Care Education/Training Program; ATTEND Internal Medicine

== ENCOUNTER 2024-06-17 10:22 | Inpatient (IN) ==
[2024-06-17] MEDS ORDERED: IOHEXOL IV ONE (10:23)
[2024-06-17] MEDS ORDERED: VANCOMYCIN 1,500 MG in 0.9 % SODIUM CHLORIDE 500 ML IV ONE (10:33)
[2024-06-17] MEDS: IPRATROPIUM/ALBUTEROL 3 ML AMPUL.NEB NEB ONE (10:39)
[2024-06-17] MEDS: CEFEPIME 1 GM VIAL IV ONE (10:51)
[2024-06-17] MEDS: methylPREDNISolone SOD SUCC 125 MG/2 ML VIAL IV ONE (10:51)
[2024-06-17] MEDS: 0.9 % SODIUM CHLORIDE 1,000 ML IV ONE ×2 (10:51→12:18)
[2024-06-17 11:30] LABS: ALT/SGPT 45 U/L (<40); AST/SGOT 30 U/L (<32); Albumin 3.8 gm/dL (3.2-5.2); Albumin/Globulin Ratio 1.3 (1.0-2.3); Alkaline Phosphatase 79 U/L (39-117); Basophils # (Auto) 0.02 K/mcL (0.00-0.30); Basophils % (Auto) 0.2 % (0.0-2.0); Bilirubin,Total 0.4 mg/dL (0.1-1.0); Blood Urea Nitrogen 15 mg/dL (8-23); Calcium 10.5 mg/dL (8.6-10.4); Carbon Dioxide 25 mmol/L (22-30); Chloride 91 mmol/L (96-108); Eosinophils # (Auto) 0.05 K/mcL (0.00-0.70); Eosinophils % (Auto) 0.4 % (0.0-7.0); Glomerular Filtration Rate 73; Glucose 155 mg/dL (70-105); Hematocrit 43.4 % (34.1-44.9); Hemoglobin 14.3 g/dL (11.2-15.7); Lymphocytes # (Auto) 2.34 K/mcL (1.50-4.80); Lymphocytes % (Auto) 17.8 % (15.5-49.0); Mean Cell Volume 93.3 fL (80.0-100.0); Mean Corpuscular HGB Conc 32.9 g/dL (31.0-36.0); Mean Platelet Volume 10.7 fL (8.8-12.5); Monocytes # (Auto) 0.72 K/mcL (0.10-0.90); Monocytes % (Auto) 5.5 % (1.0-12.0); Neutrophils % (Auto) 72.2 % (38.0-78.0); Platelet Count 197 K/mcL (140-440); Potassium 4.2 mmol/L (3.3-5.1); RBC 4.65 M/mcL (3.59-5.38); Red Cell Distribution Width 13.5 % (11.5-14.5); Sodium 133 mmol/L (133-145); WBC 13.2 K/mcL (4.5-11.0)
[2024-06-17] MEDS: VANCOMYCIN 1,000 MG in 0.9 % SODIUM CHLORIDE 250 ML IV ONE (11:41)
[2024-06-17] MEDS: MAGNESIUM SULFATE 2 GM/50 ML BAG IV ONE ×2 (11:47→13:21)
[2024-06-17] MEDS ORDERED: HEPARIN 5,000 UNIT/ML VIAL IV PRN ×3 (13:35)
[2024-06-17] MEDS: HEPARIN SOD,PORK IN 0.45% NACL 500 ML IV SCH (13:53)
[2024-06-17] MEDS: HEPARIN 5,000 UNIT/ML VIAL IV ONE (13:53)
[2024-06-17] MEDS ORDERED: DEXTROSE 31 GM ORAL.SUSP PO PRN (14:35)
[2024-06-17] MEDS ORDERED: ONDANSETRON 4 MG/2 ML VIAL IV PRN (14:35)
[2024-06-17] MEDS ORDERED: DEXTROSE 50% 50 ML VIAL IV PRN (14:35)
[2024-06-17] MEDS ORDERED: ACETAMINOPHEN 325 MG TABLET PO PRN (14:35)
[2024-06-17] MEDS ORDERED: CEFEPIME 2 GM VIAL IV SCH (15:00)
[2024-06-17] MEDS: LACTATED RINGERS 1,000 ML IV SCH (15:02)
[2024-06-17] MEDS: CEFEPIME 2 GM VIAL IV SCH (15:02)
[2024-06-17] MEDS: 0.9 % SODIUM CHLORIDE 10 ML SYRINGE IV SCH (15:02)
[2024-06-17] MEDS: IPRATROPIUM/ALBUTEROL 3 ML AMPUL.NEB NEB SCH (15:24)
[2024-06-17] MEDS: VANCOMYCIN 1,500 MG in 0.9 % SODIUM CHLORIDE 500 ML IV SCH (15:27)
[2024-06-17 15:37] LABS: Partial Thromboplastin Time 24.3 sec (20.0-37.0)
[2024-06-17 15:38] LABS: INR 0.9 (0.9-1.1)
[2024-06-17 15:50] LABS: Thyroid Stimulating Hormone 1.48 uIU/mL (0.27-5.01)
[2024-06-17 15:52] LABS: ALT/SGPT 39 U/L (<40); AST/SGOT 27 U/L (<32); Albumin 3.3 gm/dL (3.2-5.2); Albumin/Globulin Ratio 1.4 (1.0-2.3); Alkaline Phosphatase 65 U/L (39-117); Bilirubin,Total 0.3 mg/dL (0.1-1.0); Blood Urea Nitrogen 12 mg/dL (8-23); Calcium 8.3 mg/dL (8.6-10.4); Carbon Dioxide 22 mmol/L (22-30); Chloride 98 mmol/L (96-108); Globulin 2.3 gm/dL (2.2-3.7); Glomerular Filtration Rate 95; Glucose 147 mg/dL (70-105); Potassium 3.7 mmol/L (3.3-5.1); Sodium 134 mmol/L (133-145)
[2024-06-17] MEDS: INSULIN LISPRO 1 UNIT/0.01 ML UNIT SQ SCH (16:38)
[2024-06-17] MEDS: NYSTATIN 500,000 UNITS/5 ML ORAL.SUSP PO SCH (16:39)
[2024-06-17] MEDS: HEPARIN 5,000 UNIT/ML VIAL IV SCH (17:41)
[2024-06-17] MEDS: BUDESONIDE 0.5 MG/2 ML AMPUL.NEB NEB SCH (19:10)
[2024-06-17] MEDS: DOXYCYCLINE 100 MG in DEXTROSE 5% IN WATER 100 ML IV SCH (19:20)
[2024-06-17] MEDS: DULoxetine 30 MG CAPSULE PO SCH (20:08)
[2024-06-17] MEDS: clonazePAM 0.5 MG TABLET PO PRN (20:08)
[2024-06-17] MEDS: ASPIRIN 81 MG TAB.CHEW PO SCH (20:08)
[2024-06-17] MEDS: methylPREDNISolone SOD SUCC 40 MG/ML VIAL IV SCH (20:09)
[2024-06-17] MEDS: DOCUSATE SODIUM 100 MG CAPSULE PO SCH (20:09)
[2024-06-18 06:35] LABS: ALT/SGPT 35 U/L (<40); AST/SGOT 23 U/L (<32); Albumin 3.1 gm/dL (3.2-5.2); Albumin/Globulin Ratio 1.4 (1.0-2.3); Alkaline Phosphatase 58 U/L (39-117); Bilirubin,Total 0.2 mg/dL (0.1-1.0); Blood Urea Nitrogen 14 mg/dL (8-23); Calcium 8.3 mg/dL (8.6-10.4); Carbon Dioxide 21 mmol/L (22-30); Chloride 97 mmol/L (96-108); Globulin 2.2 gm/dL (2.2-3.7); Glomerular Filtration Rate 95; Glucose 156 mg/dL (70-105); Potassium 3.9 mmol/L (3.3-5.1); Sodium 133 mmol/L (133-145)
[2024-06-18 06:48] LABS: Hematocrit 34.7 % (34.1-44.9); Mean Cell Volume 96.7 fL (80.0-100.0); Mean Corpuscular HGB Conc 31.7 g/dL (31.0-36.0); Mean Platelet Volume 10.5 fL (8.8-12.5); Platelet Count 161 K/mcL (140-440); RBC 3.59 M/mcL (3.59-5.38); Red Cell Distribution Width 13.5 % (11.5-14.5); WBC 11.8 K/mcL (4.5-11.0)
[2024-06-18] MEDS: PANTOPRAZOLE 40 MG TABLET PO SCH (07:22)
[2024-06-18 07:44] LABS: Band Neutrophils % 6 % (0-10); Lymphocytes % 6 % (15-49); Monocytes % (Manual) 1 % (1-12); Platelet Estimate NORMAL (Normal); RBC Morphology NORMAL (Normal); Reactive Lymphocytes 1 % (0-2); Segmented Neutrophils % 86 % (38-78); Toxic Granulation 1+ (None Seen)
[2024-06-18] MEDS: FLUTICASONE UMECLIDIN VILANTER INH SCH (07:50)
[2024-06-18] MEDS ORDERED: ENOXAPARIN 40 MG/0.4 ML SYRINGE SQ SCH (09:00)
[2024-06-18] MEDS: ATORVASTATIN 40 MG TABLET PO SCH (10:29)
[2024-06-18] MEDS: FOLIC ACID 1 MG TABLET PO SCH (10:29)
[2024-06-18] MEDS: THIAMINE 100 MG TABLET PO SCH (10:29)
[2024-06-18 11:22] LABS: Phosphorous 2.8 mg/dL (2.5-4.5)
[2024-06-18] MEDS: MAGNESIUM SULFATE 4 GM/100 ML BAG IV ONE ×2 (12:17→12:55)
[2024-06-19 06:31] LABS: Hematocrit 30.7 % (34.1-44.9); Hemoglobin 9.6 g/dL (11.2-15.7); Mean Cell Volume 97.8 fL (80.0-100.0); Mean Corpuscular HGB Conc 31.3 g/dL (31.0-36.0); Mean Platelet Volume 10.8 fL (8.8-12.5); Platelet Count 165 K/mcL (140-440); RBC 3.14 M/mcL (3.59-5.38); Red Cell Distribution Width 13.4 % (11.5-14.5); WBC 18.4 K/mcL (4.5-11.0)
[2024-06-19 06:49] LABS: ALT/SGPT 30 U/L (<40); AST/SGOT 19 U/L (<32); Albumin 3.2 gm/dL (3.2-5.2); Albumin/Globulin Ratio 1.7 (1.0-2.3); Alkaline Phosphatase 56 U/L (39-117); Bilirubin,Total 0.2 mg/dL (0.1-1.0); Blood Urea Nitrogen 15 mg/dL (8-23); Calcium 8.2 mg/dL (8.6-10.4); Carbon Dioxide 23 mmol/L (22-30); Chloride 98 mmol/L (96-108); Globulin 1.9 gm/dL (2.2-3.7); Glomerular Filtration Rate 95; Glucose 142 mg/dL (70-105); Potassium 4.1 mmol/L (3.3-5.1); Sodium 132 mmol/L (133-145)
[2024-06-19 09:00] LABS: Band Neutrophils % 10 % (0-10); Lymphocytes % 8 % (15-49); Platelet Estimate NORMAL (Normal); RBC Morphology NORMAL (Normal); Reactive Lymphocytes 1 % (0-2); Segmented Neutrophils % 81 % (38-78)
[2024-06-19] MEDS: POTASSIUM CHLORIDE 20 MEQ TABLET PO SCH (09:22)
[2024-06-19] MEDS: APIXABAN 5 MG TABLET PO SCH (20:21)
[2024-06-20 06:04] LABS: Hematocrit 27.8 % (34.1-44.9); Hemoglobin 9.1 g/dL (11.2-15.7); Mean Cell Volume 94.6 fL (80.0-100.0); Mean Corpuscular HGB Conc 32.7 g/dL (31.0-36.0); Mean Platelet Volume 10.9 fL (8.8-12.5); Platelet Count 163 K/mcL (140-440); RBC 2.94 M/mcL (3.59-5.38); Red Cell Distribution Width 13.8 % (11.5-14.5); WBC 13.1 K/mcL (4.5-11.0)
[2024-06-20 06:31] LABS: ALT/SGPT 29 U/L (<40); AST/SGOT 15 U/L (<32); Albumin 3.3 gm/dL (3.2-5.2); Albumin/Globulin Ratio 1.8 (1.0-2.3); Alkaline Phosphatase 53 U/L (39-117); Bilirubin,Total 0.2 mg/dL (0.1-1.0); Blood Urea Nitrogen 15 mg/dL (8-23); Calcium 8.6 mg/dL (8.6-10.4); Carbon Dioxide 26 mmol/L (22-30); Chloride 99 mmol/L (96-108); Globulin 1.8 gm/dL (2.2-3.7); Glomerular Filtration Rate 95; Glucose 133 mg/dL (70-105); Potassium 4.5 mmol/L (3.3-5.1); Sodium 134 mmol/L (133-145)
[2024-06-20 08:17] LABS: Band Neutrophils % 5 % (0-10); Lymphocytes % 13 % (15-49); Platelet Estimate NORMAL (Normal); RBC Morphology NORMAL (Normal); Segmented Neutrophils % 82 % (38-78)
[2024-06-20] MEDS: IPRATROPIUM/ALBUTEROL 3 ML AMPUL.NEB NEB SCH ×2 (14:26→15:27)
[2024-06-20] MEDS: DULoxetine 30 MG CAPSULE PO SCH (20:30)
[2024-06-20] MEDS: buPROPion 150 MG TAB.SR.12H PO SCH (20:30)
[2024-06-20] MEDS: BUDESONIDE 0.5 MG/2 ML AMPUL.NEB NEB SCH (22:35)
[2024-06-21 06:00] LABS: Hematocrit 28.8 % (34.1-44.9); Hemoglobin 9.3 g/dL (11.2-15.7); Mean Cell Volume 94.4 fL (80.0-100.0); Mean Corpuscular HGB Conc 32.3 g/dL (31.0-36.0); Mean Platelet Volume 10.8 fL (8.8-12.5); Platelet Count 170 K/mcL (140-440); RBC 3.05 M/mcL (3.59-5.38); Red Cell Distribution Width 13.9 % (11.5-14.5); WBC 12.1 K/mcL (4.5-11.0)
[2024-06-21 06:44] LABS: ALT/SGPT 29 U/L (<40); AST/SGOT 19 U/L (<32); Albumin 3.3 gm/dL (3.2-5.2); Albumin/Globulin Ratio 1.8 (1.0-2.3); Alkaline Phosphatase 56 U/L (39-117); Bilirubin,Direct < 0.2 mg/dL (0-0.3); Bilirubin,Total 0.2 mg/dL (0.1-1.0); Blood Urea Nitrogen 18 mg/dL (8-23); Calcium 8.7 mg/dL (8.6-10.4); Carbon Dioxide 27 mmol/L (22-30); Chloride 101 mmol/L (96-108); Globulin 1.8 gm/dL (2.2-3.7); Glomerular Filtration Rate 95; Glucose 117 mg/dL (70-105); Lactate Dehydrogenase 264 U/L (135-225); Phosphorous 2.5 mg/dL (2.5-4.5); Potassium 4.7 mmol/L (3.3-5.1); Sodium 135 mmol/L (133-145); Triglycerides 63 mg/dL (<150); Uric Acid 3.2 mg/dL (2.5-8.0)
[2024-06-21 07:45] LABS: Band Neutrophils % 2 % (0-10); Lymphocytes % 8 % (15-49); Monocytes % (Manual) 2 % (1-12); Myelocytes % 5 %; Nucleated Red Blood Cells 1 % (0-0); Platelet Estimate NORMAL (Normal); RBC Morphology NORMAL (Normal); Segmented Neutrophils % 83 % (38-78)
[2024-06-21] MEDS: predniSONE 20 MG TABLET PO SCH (09:13)
[2024-06-21] MEDS: FUROSEMIDE 40 MG/4 ML VIAL IV ONE (10:17)
[2024-06-22 06:01] LABS: Basophils # (Auto) 0.02 K/mcL (0.00-0.30); Basophils % (Auto) 0.2 % (0.0-2.0); Eosinophils # (Auto) 0 K/mcL (0.00-0.70); Eosinophils % (Auto) 0 % (0.0-7.0); Hematocrit 28.2 % (34.1-44.9); Hemoglobin 9.2 g/dL (11.2-15.7); Lymphocytes # (Auto) 1.48 K/mcL (1.50-4.80); Lymphocytes % (Auto) 13.3 % (15.5-49.0); Mean Cell Volume 93.4 fL (80.0-100.0); Mean Corpuscular HGB Conc 32.6 g/dL (31.0-36.0); Mean Platelet Volume 10.7 fL (8.8-12.5); Monocytes # (Auto) 0.71 K/mcL (0.10-0.90); Monocytes % (Auto) 6.4 % (1.0-12.0); Neutrophils % (Auto) 75.4 % (38.0-78.0); Platelet Count 183 K/mcL (140-440); RBC 3.02 M/mcL (3.59-5.38); Red Cell Distribution Width 13.8 % (11.5-14.5); WBC 11.2 K/mcL (4.5-11.0)
[2024-06-22 06:36] LABS: ALT/SGPT 36 U/L (<40); AST/SGOT 18 U/L (<32); Albumin 3.5 gm/dL (3.2-5.2); Albumin/Globulin Ratio 2.2 (1.0-2.3); Alkaline Phosphatase 55 U/L (39-117); Bilirubin,Direct < 0.2 mg/dL (0-0.3); Bilirubin,Total 0.3 mg/dL (0.1-1.0); Blood Urea Nitrogen 21 mg/dL (8-23); Calcium 8.9 mg/dL (8.6-10.4); Carbon Dioxide 30 mmol/L (22-30); Chloride 98 mmol/L (96-108); Globulin 1.6 gm/dL (2.2-3.7); Glomerular Filtration Rate 95; Glucose 105 mg/dL (70-105); Lactate Dehydrogenase 277 U/L (135-225); Phosphorous 2.7 mg/dL (2.5-4.5); Potassium 4.3 mmol/L (3.3-5.1); Sodium 136 mmol/L (133-145); Triglycerides 64 mg/dL (<150); Uric Acid 3.7 mg/dL (2.5-8.0)
[2024-06-22] MEDS: MAGNESIUM SULFATE 2 GM/50 ML BAG IV ONE (08:44)
[2024-06-22] MEDS: IPRATROPIUM/ALBUTEROL 3 ML AMPUL.NEB NEB PRN (12:32)
[2024-06-26] MEDS ORDERED: APIXABAN 5 MG TABLET PO SCH (21:00)
== END 2024-06-22 14:23 | disposition home or self-care (01) | DRG 175 ==
LOC: ED 10:22 → ICU 14:23 → MEDSUR 06-21 18:06
PROVIDERS: ADMIT Internal Medicine Critical Care Medicine; ATTEND Internal Medicine

== ENCOUNTER 2024-11-27 08:39 | Inpatient (IN) ==
[2024-11-27] MEDS: LEVOFLOXACIN 750 MG TABLET PO ONE (09:49)
[2024-11-27] MEDS: IPRATROPIUM/ALBUTEROL 3 ML AMPUL.NEB NEB ONE ×3 (09:50→11:20)
[2024-11-27] MEDS: ALBUTEROL SULFATE 2.5 MG/3 ML NEBULIZER NEB ONE (09:50)
[2024-11-27 10:47] LABS: Basophils # (Auto) 0.04 K/mcL (0.00-0.30); Basophils % (Auto) 0.3 % (0.0-2.0); Eosinophils # (Auto) 0.20 K/mcL (0.00-0.70); Eosinophils % (Auto) 1.5 % (0.0-7.0); Hematocrit 38.5 % (34.1-44.9); Hemoglobin 12.1 g/dL (11.2-15.7); Lymphocytes # (Auto) 2.31 K/mcL (1.50-4.80); Lymphocytes % (Auto) 17.0 % (15.5-49.0); Mean Corpuscular HGB Conc 31.4 g/dL (31.0-36.0); Monocytes # (Auto) 1.13 K/mcL (0.10-0.90); Monocytes % (Auto) 8.3 % (1.0-12.0); Neutrophils % (Auto) 72.2 % (38.0-78.0); Platelet Count 292 K/mcL (140-440); RBC 4.29 M/mcL (3.59-5.38); WBC 13.6 K/mcL (4.5-11.0)
[2024-11-27 11:05] LABS: Anion Gap 10.0 (8.0-16.0); Blood Urea Nitrogen 13 mg/dL (8-23); Calcium 9.2 mg/dL (8.6-10.4); Carbon Dioxide 26 mmol/L (22-30); Chloride 103 mmol/L (96-108); Glucose 148 mg/dL (70-105); Potassium 3.7 mmol/L (3.3-5.1); Sodium 139 mmol/L (133-145)
[2024-11-27] MEDS: LABETALOL HCL 20 MG/4 ML VIAL IV ONE (14:18)
[2024-11-27] MEDS: LORazepam 2 MG/ML VIAL IV ONE (15:21)
[2024-11-27] MEDS ORDERED: ONDANSETRON 4 MG/2 ML VIAL IV PRN (16:36)
[2024-11-27] MEDS ORDERED: ACETAMINOPHEN 325 MG TABLET PO PRN (16:36)
[2024-11-27] MEDS ORDERED: SENNOSIDES 1 TABLET PO PRN (16:36)
[2024-11-27] MEDS ORDERED: LACTULOSE 20 GM/30 ML ORAL.SOL PO PRN (16:36)
[2024-11-27] MEDS: IPRATROPIUM/ALBUTEROL 3 ML AMPUL.NEB NEB SCH (19:03)
[2024-11-27] MEDS: 0.9 % SODIUM CHLORIDE 10 ML SYRINGE IV SCH (20:38)
[2024-11-28 06:19] LABS: Basophils # (Auto) 0.02 K/mcL (0.00-0.30); Basophils % (Auto) 0.2 % (0.0-2.0); Eosinophils # (Auto) 0 K/mcL (0.00-0.70); Eosinophils % (Auto) 0 % (0.0-7.0); Hematocrit 38.4 % (34.1-44.9); Hemoglobin 11.9 g/dL (11.2-15.7); Lymphocytes # (Auto) 0.90 K/mcL (1.50-4.80); Lymphocytes % (Auto) 7.3 % (15.5-49.0); Mean Corpuscular HGB Conc 31.0 g/dL (31.0-36.0); Monocytes # (Auto) 0.38 K/mcL (0.10-0.90); Monocytes % (Auto) 3.1 % (1.0-12.0); Neutrophils % (Auto) 88.6 % (38.0-78.0); Platelet Count 317 K/mcL (140-440); RBC 4.24 M/mcL (3.59-5.38); WBC 12.3 K/mcL (4.5-11.0)
[2024-11-28 06:37] LABS: ALT/SGPT 6 U/L (<40); AST/SGOT 12 U/L (<32); Albumin 3.7 gm/dL (3.2-5.2); Albumin/Globulin Ratio 1.2 (1.0-2.3); Alkaline Phosphatase 80 U/L (39-117); Anion Gap 11.0 (8.0-16.0); Bilirubin,Direct < 0.2 mg/dL (0-0.3); Bilirubin,Total < 0.2 mg/dL (0.1-1.0); Blood Urea Nitrogen 17 mg/dL (8-23); Calcium 9.4 mg/dL (8.6-10.4); Carbon Dioxide 26 mmol/L (22-30); Chloride 101 mmol/L (96-108); Globulin 3.1 gm/dL (2.2-3.7); Glucose 143 mg/dL (70-105); Phosphorous 2.7 mg/dL (2.5-4.5); Potassium 4.4 mmol/L (3.3-5.1); Sodium 138 mmol/L (133-145); Triglycerides 58 mg/dL (<150); Uric Acid 4.7 mg/dL (2.5-8.0)
[2024-11-28] MEDS: ASPIRIN 81 MG TAB.CHEW PO SCH (09:10)
[2024-11-28] MEDS: ENOXAPARIN 40 MG/0.4 ML SYRINGE SQ SCH (09:10)
[2024-11-28] MEDS: LEVOFLOXACIN 750 MG/150 ML BAG IV SCH (09:10)
[2024-11-28] MEDS: ATENOLOL 25 MG TABLET PO SCH (10:32)
[2024-11-28] MEDS: LORazepam 2 MG/ML VIAL IV PRN (14:37)
[2024-11-28] MEDS: FLU VACC TS2025-26(65YR UP)/PF 180 MCG/0.5 ML SYRINGE IM ONE (15:02)
[2024-11-28] MEDS ORDERED: ATENOLOL 25 MG TABLET PO SCH (21:00)
[2024-11-29 05:46] LABS: Basophils # (Auto) 0.01 K/mcL (0.00-0.30); Basophils % (Auto) 0.1 % (0.0-2.0); Eosinophils # (Auto) 0 K/mcL (0.00-0.70); Eosinophils % (Auto) 0 % (0.0-7.0); Hematocrit 37.5 % (34.1-44.9); Hemoglobin 11.7 g/dL (11.2-15.7); Lymphocytes # (Auto) 0.83 K/mcL (1.50-4.80); Lymphocytes % (Auto) 4.9 % (15.5-49.0); Mean Corpuscular HGB Conc 31.2 g/dL (31.0-36.0); Monocytes # (Auto) 0.52 K/mcL (0.10-0.90); Monocytes % (Auto) 3.1 % (1.0-12.0); Neutrophils % (Auto) 91.4 % (38.0-78.0); Platelet Count 334 K/mcL (140-440); RBC 4.19 M/mcL (3.59-5.38); WBC 16.8 K/mcL (4.5-11.0)
[2024-11-29] MEDS: LEVOFLOXACIN 750 MG TABLET PO SCH (09:20)
[2024-11-29] MEDS: ALBUTEROL SULFATE 2.5 MG/3 ML NEBULIZER NEB PRN (09:50)
== END 2024-11-29 10:37 | disposition home or self-care (01) | DRG 189 ==
LOC: ED 08:39 → ICU 16:25
PROVIDERS: ADMIT Internal Medicine; ATTEND Internal Medicine